=== PATIENT | female | born 1990 | race African-American/Black ===

== ENCOUNTER 2017-08-24 17:08 | Emergency (ER) | payer MEDICAID ==
[~2017-08-24] VITALS: Ht 160 cm; Wt 52.2 kg
[2017-08-24 17:27] VITALS: BP 125/77
== END 2017-08-24 20:56 | disposition left against medical advice (07) ==
LOC: ER 17:15
DX: M54.9 Dorsalgia, unspecified (principal); Z53.21 Procedure and treatment not carried out due to patient leaving prior to being seen by health care provider; V49.3XXA Car occupant (driver) (passenger) injured in unspecified nontraffic accident, initial encounter; Y93.89 Activity, other specified; Y92.89 Other specified places as the place of occurrence of the external cause; Y99.8 Other external cause status

== ENCOUNTER 2017-08-25 11:00 | Emergency (ER) | payer MEDICAID ==
[~2017-08-25] VITALS: Ht 160 cm; Wt 49.9 kg
[2017-08-25 12:35] VITALS: BP 116/78
== END 2017-08-25 14:04 | disposition home or self-care (01) ==
LOC: ER 11:00
DX: S29.011A Strain of muscle and tendon of front wall of thorax, initial encounter (principal); V43.12XA Car passenger injured in collision with other type car in nontraffic accident, initial encounter; Y93.89 Activity, other specified; Y92.410 Unspecified street and highway as the place of occurrence of the external cause; Y99.8 Other external cause status
CPT/HCPCS: 72070

== ENCOUNTER 2020-06-08 11:11 | Emergency (ER) | payer MEDICAID, OTHER ==
[~2020-06-08] VITALS: Ht 160 cm; Wt 52.2 kg
[2020-06-08 13:10] VITALS: BP 120/62
[2020-06-08] MEDS ORDERED: KETOROLAC TROMETH 30 MG/ML 1ML VIAL IV ONE (13:30)
[2020-06-08] MEDS ORDERED: CLINDAMYCIN 600MG IV 50 ML IV ONE (13:30)
== END 2020-06-08 14:17 | disposition home or self-care (01) ==
LOC: ER 11:11
DX: K04.7 Periapical abscess without sinus (principal); K02.9 Dental caries, unspecified
CPT/HCPCS: 96365; 96375; 99284; J1885; J3490

== ENCOUNTER 2024-06-07 22:05 | Emergency (ER) | payer MEDICAID, OTHER ==
[~2024-06-07] VITALS: Ht 160 cm; Wt 117.0 kg
[2024-06-08] MEDS: DICYCLOMINE HCL 10 MG CAP PO ONE (00:21)
[2024-06-08] MEDS: ONDANSETRON ODT 4 MG TAB PO ONE (00:22)
[2024-06-08 00:26] LABS: Urine Bacteria FEW /hpf (None Seen); Urine Blood Negative /uL (Negative); Urine Clarity Turbid (Clear); Urine Color Colorless (Yellow); Urine Mucus FEW (None Seen); Urine Protein, UAD Negative (Negative); Urine Specific Gravity 1.023 (1.001-1.035); Urine Urobilinogen Normal (Negative); Urine WBC 1 /hpf (0 - 5); Urine pH 6.5 (5.0-9.0)
[2024-06-08 00:59] LABS: COVID19 ANTIGEN SOFIA FIA NEGATIVE (NEGATIVE)
[2024-06-08 01:10] LABS: Rapid Influenza A Negative (Negative); Rapid Influenza B Negative (Negative)
[2024-06-08] MEDS ORDERED: ZOFR4T PO (01:17)
[2024-06-08] MEDS ORDERED: DICY10CA PO (01:17)
[2024-06-08 01:30] VITALS: BP 108/67; PULSE 68; RESP 16; O2SAT 97
== END 2024-06-08 01:41 | disposition home or self-care (01) ==
LOC: ER 22:05
DX: A08.4 Viral intestinal infection, unspecified (principal); Z20.822 Contact with and (suspected) exposure to COVID-19
CPT/HCPCS: 36415; 81001; 87426; 87804; 99283; J0500; Q0162

== ENCOUNTER 2024-06-20 11:55 | Emergency (ER) | payer MEDICAID ==
[~2024-06-20] VITALS: Ht 160 cm; Wt 52.3 kg
[~2024-06-20 11:55] MED LIST: DICY10CA PO; ZOFR4T PO
[2024-06-20 12:46] LABS: Urine Bacteria None Seen /hpf (None Seen)
[2024-06-20 13:11] LABS: Urine Blood 3+ /uL (Negative); Urine Clarity Turbid (Clear); Urine Color Colorless (Yellow); Urine Hyaline Cast FEW /lpf (0 - 2); Urine Mucus FEW (None Seen); Urine Protein, UAD Negative (Negative); Urine Specific Gravity 1.024 (1.001-1.035); Urine Urobilinogen Normal (Negative); Urine WBC 2 /hpf (0 - 5)
[2024-06-20 13:15] VITALS: BP 110/66; PULSE 70; RESP 18; TEMP 98.4; O2SAT 100
[2024-06-20 13:29] LABS: Basophils # (auto) 0 10 ^3/uL (0-0.2); Eosinophils # (auto) 0 10 ^3/uL (0-0.8); Hemoglobin 11.7 g/dL (12.2-16.2)
[2024-06-20 13:31] LABS: Basophils % (auto) 0.3 % (0.0-2.0); Eosinophils % (auto) 0.4 % (0.0-7.0); Hematocrit 35.9 % (36.0-46.0); Lymphocytes # (auto) 1.5 10 ^3/uL (0.4-5.4); Mean Corpuscular Hemoglobin 26.7 pg (28.0-32.0); Mean Corpuscular Hgb Conc. 32.7 g/dL (32.0-36.0); Mean Corpuscular Volume 81.6 fL (80.0-100.0); Monocytes # (auto) 0.7 10 ^3/uL (0-1.3); Monocytes % (auto) 7.7 % (0.0-12.0); Neutrophils # (auto) 6.3 10 ^3/uL (1.6-8.6); Neutrophils % (auto) 73.6 % (37.0-80.0); Platelet Count (auto) 158 10^3/uL (140-450); Red Cell Distribution Width 16.3 % (11.8-14.3); White Blood Cell 8.5 10^3/uL (4.4-10.8)
[2024-06-20 13:34] LABS: Chloride 108 mmol/L (98-107); Potassium 4.2 mmol/L (3.5-5.1); Sodium 138 mmol/L (136-145)
[2024-06-20 13:35] LABS: Anion Gap 5 (5-15); Carbon Dioxide 25 mmol/L (20-31)
[2024-06-20 13:40] LABS: BUN/Creatinine Ratio 10.9 (10.0-20.0); Blood Urea Nitrogen 10 mg/dL (9-23); Glucose 85 mg/dL (74-106)
[2024-06-20] MEDS ORDERED: KETOROLAC TROMETH 60MG/2ML VIAL IM ONE (14:30)
[2024-06-20] MEDS ORDERED: NAPR-746 PO (14:52)
[2024-06-20] MEDS: ACETAMINOPHEN 500 MG TAB PO ONE (14:58)
== END 2024-06-20 15:01 | disposition home or self-care (01) ==
LOC: ER 12:07
DX: N83.201 Unspecified ovarian cyst, right side (principal); Z79.899 Other long term (current) drug therapy
CPT/HCPCS: 36415; 76856; 80048; 81001; 81025; 85025